=== PATIENT | female | born 1945 | race Caucasian/White ===

== ENCOUNTER 2017-09-14 06:49 | Inpatient (IN) | END 2017-09-14 07:30 | disposition home or self-care (01) | LOC: HSDI 06:49 | PROVIDERS: ADMIT Orthopaedic Surgery Orthopaedic Surgery of the Spine; ATTEND Orthopaedic Surgery Orthopaedic Surgery of the Spine ==

== ENCOUNTER 2018-01-04 06:54 | Observation (INO) ==
[2018-01-04] MEDS ORDERED: Bupivacaine PF 0.25% Inj 30 ML Vial ONE (07:05)
[2018-01-04] MEDS ORDERED: Bupivacaine/Epinephrine Inj 0.25% 50 ML Vial ONE (07:19)
[2018-01-04] MEDS ORDERED: Bupivacaine/Epinephrine PF Inj 0.25% 10 ML Vial ONE (07:22)
[2018-01-04] MEDS ORDERED: Bupivacaine/Dextrose 0.75% Inj 2 ML Ampul ONE (07:34)
[2018-01-04] MEDS ORDERED: Chlorhexidine 4% Topical 120 APPLIC/120 ML Bottle TOPICAL SCH (07:45)
[2018-01-04] MEDS ORDERED: Chlorhexidine Gluconate 2% 1 Pack (2 Cloths) TOPICAL ONE (07:45)
[2018-01-04] MEDS ORDERED: Sodium Chlor 0.9% Inj 500 ML IV.CONT ONE (07:45)
[2018-01-04] MEDS ORDERED: Metoprolol Tartrate 25 MG Tablet PO ONE (07:45)
[2018-01-04] MEDS ORDERED: Sodium Chlor 0.9% Inj 40 ML, Bupivacaine Liposo PF 1.3% Inj 20 ML P-ARTICULR SCH ×2 (08:00)
[2018-01-04] MEDS ORDERED: Vancomycin Inj 1,000 MG in Sodium Chlor 0.9% Inj 250 ML IV.SIG SCH (08:00)
[2018-01-04] MEDS ORDERED: SODIUM CHLOR 0.9% IV.SIG SCH (08:00)
[2018-01-04] MEDS ORDERED: ceFAZolin 2 GM Premix Inj 2 GM/50 ML PIGGYBACK IV.SIG SCH (08:00)
[2018-01-04] MEDS ORDERED: TRANEXAMIC ACID IV.SIG SCH (08:00)
[2018-01-04] MEDS ORDERED: Ropivacaine 0.5% PF Inj 20 ML Vial ONE (08:42)
[2018-01-04] MEDS ORDERED: Lidocaine PF 1% Inj 5 ML Syringe OTHER ONE (10:33)
[2018-01-04] MEDS ORDERED: Bisacodyl 10 MG Supp RECTAL PRN (12:05)
[2018-01-04] MEDS ORDERED: Post-op Orders (for Pharmacy) OTHER STA (12:05)
[2018-01-04] MEDS ORDERED: Morphine Inj 4 MG/ML Vial IV.PUSH PRN (12:05)
[2018-01-04] MEDS ORDERED: Temazepam 15 MG Capsule PO PRN (12:05)
--- NOTE | 2018-01-04 12:17 | P.OP ---
- Preoperative Diagnosis (1) Osteoarthritis of right knee - Postoperative Diagnosis (1) Osteoarthritis of right knee Date of procedure: 01/04/18 Procedure: Right total knee replacement arthroplasty Anesthesia: MAC, spinal Surgeon: Garrick Simpson MD Wall Attendant: DISHA Perez Operation and Findings: EBL: Minimal INDICATION: This patient presents with long-standing arthritis of the knee. Attachment record documents conservative measures. The patient now presents for surgical treatment. NOTE: Lucina Perez PA-C was present for the entire surgical procedure as my medical clerical assistant. In my medical opinion her skill and care was necessary for proper management of this patient. TOURNIQUET TIME: 40 minutes COMPANY: [employer] FEMUR: Size 4, cruciate retaining TIBIA: Size 3, fixed-bearing PATELLA: 32 mm POLYETHYLENE INSERT: 10 mm PROCEDURE: This patient was brought the operating room and anesthetized in the supine position. The patient was positioned supine on the table. The tourniquet was placed about the thigh, and the leg was scrubbed with alcohol followed by Hibiclens followed by ChloraPrep and draped sterilely. A timeout was done, and antibiotics were given. After exsanguination the tourniquet was inflated to 250 mmHg. An anterior incision was made and a median parapatellar arthrotomy was performed. The patella was released laterally and subluxed allowing freehand cut of the patella which was then sized. A metal cap was placed over the exposed patellar surface for protection. A drone pilot hole was placed in the distal femur allowing a 4 valgus cut removing 10 mm from the distal femur. Anterior posterior and chamfer cuts were made. The posterior stabilize osteotomy was made. The attention was directed to the tibia. Retractors were positioned. The external alignment guide was used allowing the lateral tibia to be used as referencing guide and cut utilizing an oscillating saw taking care to avoid any injury to the surrounding soft tissues. This was sized properly. Trial reduction showed that the insert fit nicely. The patient had range of motion extension 0 flexion 125 . A medial release was not necessary. The bony surfaces prepared. On the back table 2 packets of methylmethacrylate were mixed. The components were cemented. Excess cement was removed. The tourniquet let down and hemostasis was controlled. The final plastic insert was inserted. Range of motion was the same as previously noted. The arthrotomy was repaired with interrupted #1 Vicryl suture, subcutaneous tissue 2-0 Vicryl suture and skin with metallic lisa A sterile dressing was applied. Sponge counts, needle counts and instrument counts were all correct. The patient tolerated procedure well and was taken to recovery in satisfactory condition. FINDINGS: There was severe osteoarthritis through most of the joint. Complete loss of articular cartilage in the retropatellar and femoral trochlea with moderate to advanced medial compartment osteoarthritis. Moderate osteoarthritis of the lateral compartment was noted. There is no complication that was appreciated
--- NOTE | 2018-01-04 12:18 | P.DCO ---
- Physical Therapy Physical Therapy: Gait training (5 times per week for 2 weeks) Knee: Total knee, Protocol: Right, Full weight bearing Canvas Knee Splint: Other (At nighttime for 4 weeks) Right Lower Extremity Weight Bearing: Weight bearing as tolerated - Nursing RN: 3 days/week x 2 weeks Nursing: Dressing changes Dressing changes: Do not change dressing (If saturated, alcohol dressing daily) - Certification Need for Home Health services: I have seen patient America Nieves on 01/04/18. My clinical findings support the need for the requested home health care services because: Need for Home Health Services: Deconditioned with increased weakness Homebound Certification: I certify that my clinical findings support that this patient is homebound because: Homebound Certification: Unsteady gait/balance
--- NOTE | 2018-01-04 13:38 | XR ---
EXAM DATE: 01/04/2018 12:05 PM EDT AGE/SEX: 72 years / Female INDICATIONS: Post op right knee. CLINICAL DATA: This is the patient's initial encounter. Patient reports that signs and symptoms have been present for 1 day and indicates a pain score of Nonresponsive. MEDICAL/SURGICAL HISTORY: None. None. COMPARISON: No prior exams available for comparison. FINDINGS: Two views of the knee reveal a total knee prosthesis in good position. No fracture or dislocation is observed. Soft tissues are unremarkable. Air and fluid noted within the joint. CONCLUSION: Total knee arthroplasty in good position. Electronically signed by: Barrie Delacruz MD 01/04/2018 1:36 PM EDT
[2018-01-04] MEDS: glipiZIDE 10 MG Tablet PO SCH (18:22)
[2018-01-04] MEDS ORDERED: Famotidine 20 MG Tablet PO SCH (21:00)
[2018-01-04] MEDS: Multivitamin/Minerals Therapeutic Tablet PO SCH (21:04)
[2018-01-04] MEDS: Senna/Docusate Sodium 8.6/50 MG Tablet PO SCH (21:04)
[2018-01-05 07:06] LABS: Hematocrit 34.3 % (35.0-46.0)
--- NOTE | 2018-01-05 07:38 | P.PNOP ---
Subjective Interval history: Patient doing well. Pain well controlled. in room Physical Exam Vital signs: Vital Signs 01/04/18 07:45 01/04/18 12:26 01/04/18 12:30 Temperature 98.8 F 97.6 F Pulse Rate 75 80 73 Respiratory Rate 20 10 L 19 Blood Pressure 124/83 112/55 L 104/57 L Pulse Oximetry 98 99 95 01/04/18 12:45 01/04/18 13:00 01/04/18 13:15 Temperature Pulse Rate 76 67 68 Respiratory Rate 23 13 14 Blood Pressure 107/55 L 112/58 L 115/56 L Pulse Oximetry 96 98 95 01/04/18 13:30 01/04/18 14:00 01/04/18 14:15 Temperature Pulse Rate 65 67 66 Respiratory Rate 10 L 13 14 Blood Pressure 122/60 119/59 L 120/61 Pulse Oximetry 96 99 97 01/04/18 16:30 01/04/18 20:00 01/05/18 00:00 Temperature 98.1 F 98.6 F 99.3 F Pulse Rate 77 84 87 Respiratory Rate 10 L 18 18 Blood Pressure 115/57 L 151/68 H 115/61 Pulse Oximetry 97 95 95 01/05/18 04:00 Temperature 98.9 F Pulse Rate 78 Respiratory Rate 18 Blood Pressure 106/53 L Pulse Oximetry 94 L Intake & Output 01/04/18 01/05/18 01/05/18 18:59 06:59 18:59 Intake Total 1747.26 / 1747.26 1560 / 1560 Output Total 5 / 5 Balance 1742.26 / 1742.26 1560 / 1560 Weight 72.6 kg 83.2 kg 83.2 kg Intake: IV 1507.26 / 1507.26 1200 / 1200 LR 1000 mL Inj 1,000 ML @ 80 1000 / 1000 1000 / 1000 mls/hr IV.CONT .[id number] [facility] Rx# :[id number] Cyklokapron Inj 726 MG In NS 107.26 / 107.26 Inj 100 ML @ 200 mls/hr IV.SIG ONCE [facility] Rx#:[id number] Vancomycin Inj 1,000 MG In NS 250 / 250 Inj 250 ML @ 250 mls/hr IV.SIG [employer] SUPER[employer]OR [facility]ICK Rx#:[id number] Ancef 2 GM Premix Inj 2 gm In 50 / 50 50 ml @ 100 mls/hr IV.SIG [employer]PER[employer]OR [facility]INICK Rx#:[id number] Ancef Inj 1,000 MG In NS Inj 100 / 100 200 / 200 100 ML @ 200 mls/hr IV.SIG Q6H [facility] Rx#:[id number] Oral 240 / 240 360 / 360 Output: Estimated Blood Loss 5 / 5 Other: # Voids 1 Date of Last Bowel Movement 01/03/18 Weight On Admission 72.6 kg Narrative: Dressing dry. Mild swelling. Neuro exam normal. No calf tenderness. Results - Labs CBC & Chem 7: 01/05/18 06:29 Laboratory Results - last 24 hr 01/04/18 01/05/18 07:30 06:29 Hgb 12.0 Hct 34.3 L Blood Type O Positive Antibody Screen Negative MTS Gel Crossmatch See Detail - Imaging Impressions Knee X-Ray 01/04/18 12:05 CONCLUSION: Total knee arthroplasty in good position. Assessment and Plan - Assessment and Plan Osteoarthritis right knee. SURGERY: Right total knee replacement: POD #1. PLAN: Weightbearing as tolerated. Restart Plavix in 2 days. Continue baby aspirin 81 mg twice daily for 30 days. Newcomb for pain control. Home with home health care and home PT. Walker and bedside commode written. Discharge to home. Follow-up in 2 weeks
--- NOTE | 2018-01-05 07:41 | P.DS ---
Date of admission: 01/04/18 12:17 Primary care physician: Jese Rivas MD Anticipated date of discharge: 01/05/18 Brief History from admission: 72-year-old female admitted electively for total knee replacement after being treated conservatively for osteoarthritis of the right knee Patient update on day of discharge: Relatively unremarkable course. Patient was not admitted but was not observation. Progressed well through postoperative period. Seen postoperative day #1. Pain well controlled. No significant bleeding. Dressing was dry. DS: Diagnosis - Discharge Diagnosis (1) Osteoarthritis of right knee Status: Acute DS: Medications - Discharge Medications Prescriptions: aspirin 81 mg PO BID 30 Days #60 tab hydrocodone-acetaminophen 1 tab PO Q4H PRN #42 tab PRN Reason: Acute Pain DS: Summary Hospital Course: Patient progressed well through physical therapy and postoperative rehabilitation. Postoperative x-ray is satisfactory. Pain well controlled. - Time Spent with Patient Total time spent providing and/or coordinating discharge services: Less than 30 minutes - Quality: VTE Deep Vein Thrombosis/Pulmonary Embolism Present on Admission: No Exam Vital signs: Vital Signs 01/04/18 07:45 01/04/18 12:26 01/04/18 12:30 Temperature 98.8 F 97.6 F Pulse Rate 75 80 73 Respiratory Rate 20 10 L 19 Blood Pressure 124/83 112/55 L 104/57 L Pulse Oximetry 98 99 95 01/04/18 12:45 01/04/18 13:00 01/04/18 13:15 Temperature Pulse Rate 76 67 68 Respiratory Rate 23 13 14 Blood Pressure 107/55 L 112/58 L 115/56 L Pulse Oximetry 96 98 95 01/04/18 13:30 01/04/18 14:00 01/04/18 14:15 Temperature Pulse Rate 65 67 66 Respiratory Rate 10 L 13 14 Blood Pressure 122/60 119/59 L 120/61 Pulse Oximetry 96 99 97 01/04/18 16:30 01/04/18 20:00 01/05/18 00:00 Temperature 98.1 F 98.6 F 99.3 F Pulse Rate 77 84 87 Respiratory Rate 10 L 18 18 Blood Pressure 115/57 L 151/68 H 115/61 Pulse Oximetry 97 95 95 01/05/18 04:00 Temperature 98.9 F Pulse Rate 78 Respiratory Rate 18 Blood Pressure 106/53 L Pulse Oximetry 94 L Intake & Output 01/04/18 01/05/18 01/05/18 18:59 06:59 18:59 Intake Total 1747.26 / 1747.26 1560 / 1560 Output Total 5 / 5 Balance 1742.26 / 1742.26 1560 / 1560 Weight 72.6 kg 83.2 kg 83.2 kg Intake: IV 1507.26 / 1507.26 1200 / 1200 LR 1000 mL Inj 1,000 ML @ 80 1000 / 1000 1000 / 1000 mls/hr IV.CONT .[id number] [facility] Rx# :[id number] Cyklokapron Inj 726 MG In NS 107.26 / 107.26 Inj 100 ML @ 200 mls/hr IV.SIG ONCE [facility] Rx#:[id number] Vancomycin Inj 1,000 MG In NS 250 / 250 Inj 250 ML @ 250 mls/hr IV.SIG 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 Mild swelling. Neuro exam normal. No calf tenderness. Results Procedures completed during hospitalization: Right total knee replacement arthroplasty Labs on day of discharge: Labs from last 24 hours 01/05/18 01/04/18 06:29 07:30 Hgb 12.0 Hct 34.3 L Blood Type O Positive Antibody Screen Negative MTS Gel Crossmatch See Detail - Impressions ITS Impressions Knee X-Ray 01/04/18 12:05 CONCLUSION: Total knee arthroplasty in good position. Discharge Plan - Discharge Disposition Patient Disposition: W/Home Health Service - Discharge Condition Condition: Good - Discharge Order Discharge Orders: Discharge Order (Routine); Ordered 01/04/18 Ordered By: Garrick Simpson - Discharge Details Anticipated Discharge Date: 01/05/18 - Physicians Team Primary Care Provider: Jese Rivas V Attending Provider: Garrick Simpson - Rxs /Orders / Referrals /Forms Prescriptions: New aspirin 81 mg Tablet,Chewable 81 mg PO BID 30 Days Qty: 60 RF: 0 hydrocodone-acetaminophen 7.5-325 mg Tablet 1 tab PO Q4H PRN (Reason: Acute Pain) Qty: 42 RF: 0 Continue atorvastatin 20 mg Tablet 20 mg PO HS cholecalciferol (vitamin D3) [Vitamin D3] 5,000 unit Tablet 5,000 unit PO DAILY clopidogrel 75 mg Tablet 75 mg PO DAILY Qty: 0 RF: 0 cyanocobalamin (vitamin B-12) [Vitamin B-12] 1,000 mcg Tablet 1,000 mcg PO DAILY escitalopram oxalate 10 mg Tablet 10 mg PO DAILY glipizide 10 mg Tablet 10 mg PO BID lisinopril 5 mg Tablet 5 mg PO DAILY metformin 500 mg Tablet 500 mg PO BID [id number] acid-lutein [Centrum Silver] 400-250 mcg Tablet,Chewable 1 tab PO DAILY omega [id number]-fish oil [Fish Oil] 1,000 mg (120 mg-180 mg) Capsule 1 cap PO DAILY pantoprazole 40 mg Tablet,Delayed Release (Dr/Ec) 40 mg PO DAILY ranitidine HCl 150 mg Capsule 150 mg PO HS Ambulatory Orders / Order Sets / DME: Adjustable Commode 3-in-1 (1 each) (Routine) Location: Determined by Patient Ordered By: Garrick Scott With Front Wheels (1 each) (Routine) Location: Determined by Patient Ordered By: Garrick Simpson Referrals: Jese Rivas MD [Primary Care Provider] - See Instructions - Discharge Instructions Patient Printed Instructions: Knee Replacement (DC)
[2018-01-05] MEDS: Multivitamin/Minerals Therapeutic Tablet PO SCH (08:11)
[2018-01-05] MEDS: Senna/Docusate Sodium 8.6/50 MG Tablet PO SCH (08:11)
[2018-01-05] MEDS: glipiZIDE 10 MG Tablet PO SCH (08:11)
[2018-01-05] MEDS ORDERED: Lisinopril 5 MG Tablet PO SCH (09:00)
[2018-01-05] MEDS ORDERED: Escitalopram 10 MG Tablet PO SCH (09:00)
== END 2018-01-05 14:32 | disposition home health service (06) ==
LOC: HSDI 06:54 → HSDC 06:54 → EDSTATUS 09:00 → N06 16:20
PROVIDERS: ADMIT Orthopaedic Surgery Orthopaedic Surgery of the Spine; ATTEND Orthopaedic Surgery Orthopaedic Surgery of the Spine